=== PATIENT | male | born 1965 | race Caucasian/White ===

== ENCOUNTER 2022-09-22 17:53 | Emergency (ER) | payer OTHER, SELFPAY ==
[2022-09-22 18:41] VITALS: BP 128/82; PULSE 74; RESP 16; TEMP 36.4; O2SAT 96; BMI 38.9
--- NOTE | 2022-09-22 18:44 | ED_ITS ---
HPI - Abdominal Pain General Chief Complaint: Abdominal Pain Stated Complaint: Pain in belly button Time Seen by Provider: 09/22/22 18:56 Source: patient and family Mode of arrival: ambulatory Limitations: no limitations History of Present Illness HPI narrative: 57 yo male with history of obesity presents to the ER for evaluation of a painful umbilical hernia that has been present for several months but worsening over the last 1 month. He states when he lifts things or gets up out of bed the protrusion is more painful and getting larger. He denies any N/V/D or constipation. No fever or chills. He does not have a PCP and has not sought out any medical evaluation since he 1st noticed the hernia. He denies any skin changes to the area. MD elicited complaint: abdominal pain Onset (ago): month(s) Pain Consistency: intermittent Location: periumbilical Severity: moderate Quality: aching Radiation: none Migration to: no migration Exacerbating factors: movement Relieving factors: rest Context: history of similar episodes Associated symptoms: denies other symptoms Related Data Allergies Allergy/AdvReac Type Severity Reaction Status Date / Time No Known Allergies Allergy Unverified 09/22/22 18:41 [No Known Allergies*] Review of Systems Review of Systems Yes all other systems are reviewed and are negative [facility] Social History Social History Advance Directives: No Advance Directives Information Provided: No Physical Exam ED Vital Signs: Vital Signs - 24 hr 09/22/22 18:41 Temperature 97.5 F Pulse Rate 74 Respiratory Rate 16 Blood Pressure 128/82 Pulse Oximetry 96 Oxygen Delivery Method Room Air BMI result Body Mass Index 38.9 Appearance: Alert. Oriented X3. No acute distress. Head: normocephalic, atraumatic. Eyes: Pupils equal, round and reactive to light. ENT: Pharynx normal. No tonsillar swelling or exudate. Neck: Normal inspection. Neck supple. CVS: Normal heart rate and rhythm. Pulses normal. Respiratory: No respiratory distress. Breath sounds normal. Abdomen: Obese, palpable umbilical hernia that is completely reducible. no skin changes. abd Soft, normal active +BS x4 Skin: Skin warm and dry. Normal skin color. Normal skin turgor. No rashes. Extremities: No lower extremity edema. No joint swelling. Neuro/psych: Oriented X 3. grossly normal, nonfocal. Normal speech and cognition. Course Course Course Narrative: RME - 57 yo male presenting with increasingly painful umbilical hernia for the last 1 month. It is getting larger as well. No vomiting. Medical Decision Making Medical Decision Making MDM Narrative: 57 yo male presenting with enlarging umbilical hernia for the last month. Worsening pain with certain movements with protrusion through the umbilicus. It easily reduces. He has no evidence of obstruction without vomiting, no skin changes. At this time there is no emergent need for imaging. Will plan to refer to general surgery. recommended abd binder, stool softners. return precautions discussed. stable for d/c home. Differential Diagnosis Differential Diagnoses: The differential diagnosis associated with the presentation includes umbilical hernia, strangulated hernia, incarcerated hernia, bowel obstruction Independent Historian Clinical information obtained from an independent historian. History obtained from or confirmed by: Spouse Tests considered The following testing was considered but not selected: considered CT abd however hernia easily reduces Prescription Management I considered prescription management with: Pain Medication Chronic Conditions Patient?s care impacted by: Other (obesity) Critical Care Time Critical Care Time Critical Care Time: No Discharge Plan Discharge Clinical Impression: Hernia, umbilical Patient Disposition: Home, Self-Care Instructions: Umbilical Hernia (ED), Umbilical Hernia Repair (DC) Additional Instructions: Recommend following up with General Surgery for further evaluation and treatment options. Recommend wearing an abdominal binder to help keep the hernia in place and prevent it from coming out. These can be purchased online. It is important to use stool softeners and laxatives to keep your stools soft and prevent constipation. If you develop worsening pain, inability to push the hernia back in or vomiting, come back to the ER right away for further evaluation. Referrals: [facility] General Surgeons [Provider Group] (umbilical hernia)
== END 2022-09-22 19:21 | disposition home or self-care (01) ==
PROVIDERS: Emergency Provider Internal Medicine
DX: K42.9 Umbilical hernia without obstruction or gangrene (principal); E66.9 Obesity, unspecified; Z68.38 Body mass index [BMI] 38.0-38.9, adult
CPT/HCPCS: 99282

== ENCOUNTER 2022-10-21 14:35 | Outpatient (AMB) | payer OTHER, SELFPAY ==
--- NOTE | 2022-10-21 14:39 | A.OFFVIS_ITS ---
Intake Vital Signs 10/21/22 14:48 Height 5 ft 6 in Weight 244 lb BMI 39.4 BP 139/75 Blood Pressure Location Lt brachial Position Sitting Pulse 59 Intake Visit Reasons: umbilical hernia Intake Note: Patient is seen in office for ER follow up, following umbilical hernia. 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 He noted the lump to be increasing in size with heavy lifting. He has been lifting heavy objects at home and feels this may have aggravated the hernia. He denies a previous history of hernias or hernia surgery. He denies nausea, vomiting, fever or chills. He is interested in having this hernia repaired. He was recently evaluated in the emergency department when the hernia became quite large with a bluish discoloration. The hernia subsequently reduced in size and is now avoiding any heavy lifting. [facility] Surgical History History of hand surgery Social History Alcohol intake: never Patient Tobacco Use Status: Never used Tobacco Review of Systems Const All systems reviewed & are unremarkable except as noted in HPI and below Denies chills, Denies fever(s), Denies headache(s), Denies poor appetite and Denies weakness ENT Denies headache(s) Card Denies chest pain, Denies irregular heart rhythm, Denies palpitations and Denies dyspnea Resp Denies cough, Denies excessive phlegm production and Denies dyspnea GI Details: Umbilical hernia as noted in HPI Denies abdominal pain, Denies bloating, Denies change in bowel habits, Denies constipation, Denies heartburn, Denies diarrhea, Denies nausea and Denies vomiting Denies difficulty urinating and Denies urinary frequency Musc Denies back pain, Denies muscle weakness and Denies numbness Skin/Breast Denies changing lesions and Denies unusual bruising Neuro Denies headache(s), Denies numbness, Denies paresthesias and Denies weakness Psych Denies anxiety and Denies depression Endo Denies palpitations William/Lymph Denies lymphadenopathy Physical Exam Const General: cooperative and no acute distress Nutritional Appearance: well nourished Orientation/consciousness: patient oriented x3 Limitations: no limitations HEENT Head: Yes normocephalic and Yes atraumatic Ears: hearing grossly normal bilaterally Resp Effort & Inspection: normal respiratory effort, no audible wheezes, no cough and no respiratory distress Cardio Jugular venous distension: no JVD GI Inspection: Yes normal to inspection Palpation (GI): Soft to palpation, nontender, no guarding, not rigid and Hernia present umbilical (2 cm, reducible) Skin Other: Warm, dry, no rash Neuro General: patient oriented x3 Extrem General: Yes no clubbing, cyanosis or edema Assessment & Plan Assessment & Plan (1) Hernia, umbilical: Code(s): K42.9 - Umbilical hernia without obstruction or gangrene Plan 57-year-old male patient presenting with an umbilical hernia which is increasing in size and causing some discomfort. I recommended repair with mesh and after discussion of the procedure, risks, and alternatives, he consents to a repair of the umbilical hernia with mesh. This will be scheduled as a short-stay surgery under general anesthesia. Coding Level of Care Code New Pt Level 4 (03860) Diagnoses Hernia, umbilical K42.9
[2022-10-21 14:48] VITALS: BP 139/75; PULSE 59; BMI 39.4
== END 2022-10-21 14:59 | disposition home or self-care (01) ==
PROVIDERS: Visit Provider Surgery
DX: K42.9 Umbilical hernia without obstruction or gangrene (principal)
CPT/HCPCS: 99204

== ENCOUNTER → 2022-10-21 14:35 | Outpatient (BNVA) | payer OTHER, SELFPAY | PROVIDERS: Visit Provider Surgery | DX: K42.9 Umbilical hernia without obstruction or gangrene (principal) | CPT/HCPCS: 99202 ==

== ENCOUNTER 2022-11-03 09:26 | Day surgery (SDC) | payer OTHER, SELFPAY ==
[2022-10-29 12:59] VITALS: BMI 39.4
--- NOTE | 2022-11-02 08:49 | P.CONAN_ITS ---
Documented by User: Una Barragan NP 11/02/22 08:49 HPI - Anesthesia Eval Consult details Narrative: 57yo M for Hernia Repair Umbilical w/mesh [facility] Past Medical History Medical History No pertinent past medical history Surgical History Surgical History History of hand surgery Social History Social History Alcohol intake: never Patient Tobacco Use Status: Never used Tobacco Meds Allergies Allergy/AdvReac Type Severity Reaction Status Date / Time No Known Allergies Allergy Verified 11/03/22 09:40 [No Known Allergies*] Home Medications Medication Instructions Recorded Confirmed Last Taken Type No Known Home Meds 10/21/22 10/29/22 Unknown History Exam Exam Date and Time: November 02, 2022 0849 Height,Weight and Vital Signs: Height 5 ft 6 in Weight 110.677 kg Assessment and Plan Assessment Anesthesia Assessment: Chart Reviewed Documented by User: Larisa Peoples MD 11/03/22 09:46 [facility] Past Medical History Medical History No pertinent past medical history Surgical History Surgical History History of hand surgery History of Problems with Anesthesia: No Social History Social History Alcohol intake: never Patient Tobacco Use Status: Never used Tobacco Meds Allergies Allergy/AdvReac Type Severity Reaction Status Date / Time No Known Allergies Allergy Verified 11/03/22 09:40 [No Known Allergies*] Home Medications Medication Instructions Recorded Confirmed Last Taken Type No Known Home Meds 10/21/22 10/29/22 Unknown History Exam Airway Mallampati Class: III TM Dist: >3cm Neck ROM: Full Loose/Missing/Broken Teeth: No Heart: RRR Lungs: CTA Assessment and Plan Assessment Anesthesia Assessment: Anesthesia Plan Discussed Final Anesthetic Review History of Problems with Anesthesia: No NPO: Yes ASA Class: II Final Preanesthetic Review: Meds/Allgs Chart Reviewed, Consent Obtained/Reviewed and Anes Risks/Benef Reviewed Patient Risk: Low Procedure Risk: Low Anesthetic Plan Anesthetic Plan: GA Disposition: Standard PACU
[2022-11-03] VITALS (8 sets, daily range): BP systolic 114–155; BP diastolic 71–92; PULSE 64–85; RESP 15–16; TEMP 36.6–36.7; O2SAT 94–98
[2022-11-03] MEDS: Lactated Ringers 1,000 ML 100 ML IVCONT (10:07)
--- NOTE | 2022-11-03 11:22 | MHC.SHP ---
Pre-Procedural Eval Section A Date of Service: 11/03/22 The patient is an INPATIENT: No Changes since office visit: Yes Patient answered all questions; No Cold of Flu in the past 2 weeks, No New Medical Problems and No Changes in Medication The History & Physical has been completed within 30 days and I have reviewed it.: Yes Section B Chief Complaint: Umbilical hernia without obstruction or gangrene Allergies: Allergies Allergy/AdvReac Type Severity Reaction Status Date / Time No Known Allergies Allergy Verified 11/03/22 09:40 [No Known Allergies*] Plan Diagnosis/Plan: Unchanged I have reviewed the history and physical and performed a pertinent physical examination on my patient. No changes have occurred unless specified. Time Spent With Patient Time: Total time managing care of this patient today ____ minutes.
--- NOTE | 2022-11-03 12:38 | P.OP_ITS ---
Operative Note Operative Note Date of Service: 11/03/22 Narrative: Preoperative diagnosis: Umbilical hernia Postoperative diagnosis: Same Procedure: Repair of umbilical hernia with mesh Surgeon: Waldo Solano MD Prosthetic Lab Technician: HEATHER Payton; KATHARINA Loving Anesthesia: General LMA Indications for procedure: 57-year-old male patient presenting with a slowly enlarging umbilical hernia which is now causing discomfort with lifting and straining. Operative findings: 2 cm umbilical hernia defect repaired using a 4.6 cm Ventralex mesh Specimen: None Estimated blood loss: Less than 2 cm Complications: None Procedure details: Patient was brought to the OR placed in a supine position. After administering general anesthesia the patient's abdomen was prepped with ChloraPrep and draped in a sterile fashion. A surgical time-out was called the consent confirmed. Patient received preoperative antibiotics and Venodyne boots were in place. Local anesthesia was infiltrated in a curvilinear fashion below the umbilicus. Incision was then made below the umbilicus and carried out through subcutaneous tissue up the hernia sac. Hernia sac was dissected free from the surrounding umbilical skin and the umbilical skin lifted off the fascia. The defect measuring 2 cm was identified. The sac was dissected out the fascial edge and the sac reduced into the abdominal cavity. A preperitoneal space was then created above the peritoneum. The 4.6 cm mesh was then deployed within the preperitoneal space. This secured in 4 quadrants using 1 Tycron suture. The fascia was then closed over the mesh using [id number] 1 Tycron sutures. Wounds were then irrigated with saline solution and suctioned dry. Umbilical skin was then reattached to the fascia using a 3-0 Polysorb suture. Dermis was reapproximated using interrupted 3-0 Polysorb sutures. Skin was then closed using a running subcuticular 4-0 Polysorb suture. Steri-Strips, 2 x 2 gauze and Tegaderm were then applied. The patient tolerated the procedure well. Sponge, instrument, and needle counts reported as correct. The patient was transferred to PACU in stable condition.
== END 2022-11-03 14:44 | disposition home or self-care (01) ==
PROVIDERS: Visit Provider Surgery
PROC: (CPT 49591; principal; 2022-11-03 11:20)
DX: K42.9 Umbilical hernia without obstruction or gangrene (principal)
CPT/HCPCS: 49591; C1781; J0690; J1100; J1170; J1885; J2250; J2405; J3010

== ENCOUNTER → 2022-11-03 09:26 | Outpatient (BNV) | payer OTHER, SELFPAY | PROVIDERS: Visit Provider Surgery | DX: K42.9 Umbilical hernia without obstruction or gangrene (principal) | CPT/HCPCS: 49591 ==

== ENCOUNTER 2022-11-12 10:33 | Outpatient (AMB) | payer OTHER, SELFPAY ==
[2022-11-12 10:38] VITALS: BP 134/80; PULSE 68; BMI 39.9
--- NOTE | 2022-11-12 10:38 | A.OFFVIS_ITS ---
Intake Vital Signs 3 11/12/22 10:38 Height 5 ft 6 in Weight 247 lb 2 oz BMI 39.9 BP 134/80 Blood Pressure Location Lt brachial Position Sitting Pulse 68 Intake Visit Reasons: post umbilical hernia Intake Note: Patient is seen in office for post op assessment post umbilical hernia repair. Patient c/o: admits to sore and tender Chronometer Tester Required: No Accompanied by: Spouse Allergies No Known Allergies [No Known Allergies*] Allergy (Verified 11/12/22 10:40) HPI HPI Comments 2 History of Present Illness0 Details Patient returns 1 week following repair of an umbilical hernia on 11/03/2022. He reports some discomfort at the incision and along the right lateral abdomen otherwise feels well. He denies any nausea, vomiting, fever or chills. [facility] Medical History (Updated 11/12/22 @ 10:43 by Waldo Solano MD) No pertinent past medical history Surgical History H/O umbilical hernia repair (11/03/22) History of hand surgery Social History Alcohol intake: never Patient Tobacco Use Status: Never used Tobacco Physical Exam Vital Signs: Last Vital Signs Pulse 68 11/12/22 10:38 BP 134/80 11/12/22 10:38 BMI result Body Mass Index 39.9 Const General: cooperative Resp Effort & Inspection: normal respiratory effort GI Other: Periumbilical incision is clean, dry, and intact without redness or discharge. No evidence of recurrent hernia. Inspection: Yes Abdominal panniculus present Abdomen image: 2 1. Incision, umbilicus Extrem General: No edema Assessment & Plan Assessment & Plan (1) Hernia, umbilical: Code(s): K42.9 - Umbilical hernia without obstruction or gangrene Qualifiers: Obstruction and gangrene presence: without obstruction or gangrene Qualified Code(s): K42.9 - Umbilical hernia without obstruction or gangrene Plan Patient returns 1 week following repair of an umbilical hernia. His wounds are clean, dry and intact without redness or discharge. I have asked him to avoid lifting greater than 10 lb for the next 3 weeks. He will return at that time for follow-up examination. Coding Level of Care Code Global (14066) Diagnoses Umbilical hernia without obstruction and without gangrene K42.9 Obstruction and gangrene presence: without obstruction or gangrene
== END 2022-11-12 10:43 | disposition home or self-care (01) ==
PROVIDERS: Visit Provider Surgery
DX: K42.9 Umbilical hernia without obstruction or gangrene (principal)
CPT/HCPCS: 99213

== ENCOUNTER → 2022-11-12 10:33 | Outpatient (BNVA) | payer OTHER, SELFPAY | PROVIDERS: Visit Provider Surgery | DX: Z48.815 Encounter for surgical aftercare following surgery on the digestive system (principal) | CPT/HCPCS: 99212 ==

== ENCOUNTER 2022-12-03 11:48 | Outpatient (AMB) | payer OTHER, SELFPAY ==
--- NOTE | 2022-12-03 11:53 | MHC.OFFVIS ---
Intake Vital Signs 12/03/22 12:02 Height 5 ft 6 in Weight 244 lb BMI 39.4 BP 141/83 H Blood Pressure Location Lt brachial Position Sitting Pulse 67 Intake Visit Reasons: 3 wk follow up umbilical hernia Intake Note: Patient is seen in office for 3 weeks follow up visit, umbilical hernia. Patient c/o: admits to minimal pain around the incision Inbound Sales Advisor Required: No Accompanied by: Self / Same As Patient Allergies No Known Allergies [No Known Allergies*] Allergy (Verified 12/03/22 12:03) Medication List - Last Reconciled 12/03/22 by Waldo Solano MD HPI HPI Comments History of Present Illness Details Patient returns 4 weeks following repair of an umbilical hernia on 11/03/2022. He feels much improved with only minimal incisional pain and generally feels great. He denies nausea, vomiting, fever or chills. He returned to work last week and is doing well. [facility] Medical History No pertinent past medical history Surgical History H/O umbilical hernia repair (11/03/22) History of hand surgery Social History Alcohol intake: never Patient Tobacco Use Status: Never used Tobacco Physical Exam Vital Signs: Last Vital Signs Pulse 67 12/03/22 12:02 BP 141/83 H 12/03/22 12:02 BMI result Body Mass Index 39.4 Const General: cooperative Resp Effort & Inspection: normal respiratory effort GI Other: Periumbilical incision is clean, dry, and intact without redness or discharge. No hernias identified with Valsalva maneuvers. Inspection: Yes Abdominal panniculus present Extrem General: No edema Assessment & Plan Assessment & Plan (1) Hernia, umbilical: Code(s): K42.9 - Umbilical hernia without obstruction or gangrene Qualifiers: Obstruction and gangrene presence: without obstruction or gangrene Qualified Code(s): K42.9 - Umbilical hernia without obstruction or gangrene Plan 57-year-old male patient status post repair of an umbilical hernia with mesh returning for final postoperative visit. His wounds are clean, dry, and intact without redness or discharge. He may resume normal activity without restriction and should follow up as needed. Coding Level of Care Code Global (08810) Diagnoses Umbilical hernia without obstruction and without gangrene K42.9 Obstruction and gangrene presence: without obstruction or gangrene
[2022-12-03 12:02] VITALS: BP 141/83; PULSE 67; BMI 39.4
== END 2022-12-03 12:08 | disposition home or self-care (01) ==
PROVIDERS: Visit Provider Surgery
DX: K42.9 Umbilical hernia without obstruction or gangrene (principal)
CPT/HCPCS: 99213

== ENCOUNTER → 2022-12-03 11:48 | Outpatient (BNVA) | payer OTHER, SELFPAY | PROVIDERS: Visit Provider Surgery | DX: Z48.815 Encounter for surgical aftercare following surgery on the digestive system (principal); Z87.19 Personal history of other diseases of the digestive system | CPT/HCPCS: 99212 ==

== ENCOUNTER → 2023-06-23 10:44 | Outpatient (BNVA) | payer SELFPAY | PROVIDERS: Visit Provider Physician Assistant Medical | DX: Z02.79 Encounter for issue of other medical certificate (principal) ==